=== PATIENT | female | born 1990 | race Caucasian/White ===

== ENCOUNTER 2017-06-27 18:55 | Emergency (ER) | payer OTHER ==
[~2017-06-27] VITALS: Ht 165.1 cm; Wt 81.3 kg
[2017-06-27 18:58] VITALS: TEMP 36.7; Ht 165.1 cm; Wt 81.3 kg
--- NOTE | 2017-06-27 19:21 | EMERGENCY ROOM VISIT NOTE ---
ED Visit Note First contact with patient: 19:01 CHIEF COMPLAINT: Shoulder pain HISTORY OF PRESENT ILLNESS: This 26-year-old female patient presents to the emergency department ambulatory complaining of pain in the left shoulder when she fell earlier today. The patient states that she tripped over a bar and fell forward with her hand outstretched and above her head. Her shoulder and arm were hyper extended above her head. There is marked limitation of motion of the arm because of the pain. The patient did not hear a cracking the sound at the time of the injury. There is no weakness of the arm. The pain is moderate , constant and increases with motion of the hand and arm. The patient states the pain is sharp and 5/10. The patient has taken nothing for relief of the pain. No previous significant shoulder disease or injury. No numbness or tingling. Patient denies neck or back pain. No chest pain or shortness of breath. No abdominal pain or nausea/vomiting. No cough. REVIEW OF SYSTEMS: A 6 system review of systems was performed with positives and pertinent negatives in the HPI. ALLERGIES: No known drug allergies MEDICATIONS: None PMH: None SOCIAL HISTORY: The patient lives locally with her significant other. She does not smoke. She is employed. PHYSICAL EXAM: Vital Signs: Reviewed nurse's notes, vital signs stable. GENERAL : This is a 26-year-old female, in no acute distress, but appears to be in pain , well-developed, well-nourished. MUSCULOSKELETAL: There is no deformity in the contour of the left shoulder and there are no alejandra deformities noted. There is no sulcus sign. There is tenderness over the the proximal humerus. The patient' s range of motion is markedly decreased secondary to pain. Supraspinatus strength 5/5. NEURO: The patient is alert and oriented to person, place, and time. Normal sensation to light and sharp touch. Capillary refill less than 2 seconds. Radial and brachial pulse 2+. There is no tenderness to palpation over the clavicle, elbow, forearm, wrist or hand. EMERGENCY DEPARTMENT COURSE: I examined the patient. An X-ray of the left shoulder was reviewed by myself and radiology and shows fracture to the greater tubercle of the left humerus.She decline pain medications. She was placed in a sling and swap shoulder immobilizer by the emergency department bioprocessing manufacturing technician. The position was satisfactory. She should contact orthopedics first thing Wednesday to schedule a follow- up appointment for further evaluation and management. The patient was given a note for work. She should wear the sling and swath with limited use of the arm until cleared by orthopedics. [~ rep ct add3]] LEFT SHOULDER MIN 2 VIEWS ROUTINE, LEFT HUMERUS MIN 2 VIEWS ROUTINE CLINICAL HISTORY: fall, left arm pain. Left shoulder pain. COMPARISON STUDY: None. FINDINGS: There is a nondisplaced fracture involving the greater tuberosity of the left humeral head. The fracture does not extend into the humeral neck. The mid to distal humerus and left clavicle are intact. No dislocation. IMPRESSION: Nondisplaced fracture at the greater tuberosity of the left humeral head. LEFT SHOULDER MIN 2 VIEWS ROUTINE, LEFT HUMERUS MIN 2 VIEWS ROUTINE CLINICAL HISTORY: fall, left arm pain. Left shoulder pain. COMPARISON STUDY: None. FINDINGS: There is a nondisplaced fracture involving the greater tuberosity of the left humeral head. The fracture does not extend into the humeral neck. The mid to distal humerus and left clavicle are intact. No dislocation. IMPRESSION: Nondisplaced fracture at the greater tuberosity of the left humeral head. Current/Historical Medications No Active Prescriptions or Reported Meds Allergies Coded Allergies: No Known Allergies (Unverified , 06/27/17) Vital Signs Date Time Temp Pulse Resp B/P (MAP) Pulse Ox O2 Delivery O2 Flow Rate FiO2 06/27/17 19:48 84 18 120/81 99 Room Air 06/27/17 18:58 36.7 88 16 133/86 99 Room Air Departure Information Impression Primary Impression: Proximal humerus fracture Dispostion Home / Self-Care Condition GOOD Prescriptions No Active Prescriptions or Reported Meds Referrals Robert Baptiste MD Forms HOME CARE DOCUMENTATION FORM, IMPORTANT VISIT INFORMATION, Work Instructions Additional Instructions: must wear sling and swath with limited use of the left arm until cleared by orthopedics Patient Instructions Humerus Fx, [facility] [employer] Additional Instructions Motrin 600 mg every 6-8 hours or moderate pain Wear the sling and swath until seen by orthopedics Contact orthopedics first thing Wednesday to schedule a follow-up appointment for further evaluation and management Return with any worsening pain, numbness, tingling or generalized worsening symptoms Problem Qualifiers Primary Impression: Proximal humerus fracture Encounter type: initial encounter Fracture type: closed Fracture morphology : other fracture Fracture alignment: nondisplaced Laterality: left Qualified Codes: S42.295A - Other nondisplaced fracture of upper end of left humerus, initial encounter for closed fracture
--- NOTE | 2017-06-27 19:37 | DIAGNOSTIC IMAGING REPORT ---
LEFT SHOULDER MIN 2 VIEWS ROUTINE, LEFT HUMERUS MIN 2 VIEWS ROUTINE CLINICAL HISTORY: fall, left arm pain. Left shoulder pain. COMPARISON STUDY: None. FINDINGS: There is a nondisplaced fracture involving the greater tuberosity of the left humeral head. The fracture does not extend into the humeral neck. The mid to distal humerus and left clavicle are intact. No dislocation. IMPRESSION: Nondisplaced fracture at the greater tuberosity of the left humeral head. Electronically signed by: Khadar Fitzpatrick M.D. 06/27/2017 7:35 PM Dictated Date/Time: 06/27/2017 7:33 PM
[2017-06-27 19:48] VITALS: BP 120/81; PULSE 84; O2SAT 99
== END 2017-06-27 20:00 | disposition home or self-care (01) ==
LOC: C.EDB 18:57 → C.EDD 20:00
DX: S42.295A Other nondisplaced fracture of upper end of left humerus, initial encounter for closed fracture (principal); W18.09XA Striking against other object with subsequent fall, initial encounter

== ENCOUNTER → 2017-11-10 | Outpatient (CLI) | payer OTHER | END | disposition home or self-care (01) | LOC: C.LABSPEC 11:10 | PROVIDERS: ATTEND Obstetrics & Gynecology | DX: Z34.91 Encounter for supervision of normal pregnancy, unspecified, first trimester (principal) ==

== ENCOUNTER 2017-11-21 13:07 | Emergency (ER) | payer OTHER ==
[~2017-11-21] VITALS: Ht 165.1 cm; Wt 80.5 kg
[2017-11-21 13:09] VITALS: TEMP 36.6; Ht 165.1 cm; Wt 80.5 kg
[2017-11-21] MEDS ORDERED: SODIUM CHLORIDE 0.9% 1000ML 1,000 ML IV STA ×2 (13:20→14:53)
[2017-11-21] MEDS ORDERED: ONDANSETRON INJ 2 MG/ML 2 ML VIAL IV STA (13:20)
--- NOTE | 2017-11-21 13:31 | EMERGENCY ROOM VISIT NOTE ---
History Report prepared by Mateo: Lissette Matos Under the Supervision of: Dr. Dayanara Staton M.D. First contact with patient: 13:14 Chief Complaint: DIZZY Stated Complaint: DIZZINESS,VOMITING History of Present Illness The patient is a 27 year old female who presents to the Emergency Room with complaints of sudden dizziness starting this morning. The patient states that it feels similar to vertigo thought she has never had vertigo. She states that she suddenly felt like the room was spinning, became nauseous and vomited. She reports that since then every times she changes position, she gets nauseous and vomits. She reports that she has not been able to eat or drink all day. The patient notes that she is . She states that she has been sick and dizzy with the , but not like this. She reports that this is her third . The patient denies fever, urinary symptoms, vaginal bleeding, vaginal discharge, and cramping. She denies a history of difficulty with her sugars during pregnancies. Source of History: patient Onset: this morning Position: other (global) Quality: other (the room is spinning) Timing: other (sudden) Modifying Factors (Worsening): movement Associated Symptoms: + nausea, + vomiting, No fevers, No urinary symptoms Note: The patient complains of not being able to eat or drink all day. The patient denies vaginal bleeding, vaginal discharge, and cramping. Review of Systems See HPI for pertinent positives & negatives. A total of 10 systems reviewed and were otherwise negative. Past Medical & Surgical Medical Problems: (1) No Known Active Medical Problems Family History Patient reports no known family medical history. Social History Smoking Status: Never Smoker Marital Status: Housing Status: lives with family Occupation Status: employed Current/Historical Medications Scheduled Multivit/Min/Iron/Fol Ac/Pren ( Vitamin), 1 TAB PO DAILY Ondansetron Hcl (Zofran), 4 MG PO PRN Allergies Coded Allergies: No Known Allergies (Unverified , 06/27/17) Physical Exam Vital Signs Date Time Temp Pulse Resp B/P (MAP) Pulse Ox O2 Delivery O2 Flow Rate FiO2 11/21/17 16:30 92 108/60 99 11/21/17 15:10 73 16 96/59 99 Room Air 11/21/17 13:50 76 11/21/17 13:09 36.6 92 16 125/77 99 Room Air Physical Exam Vital signs reviewed. General: Well-appearing, in no significant distress. HEENT: No scleral icterus, PERRLA, neck supple. Atraumatic. Cardiovascular: Regular rate and rhythm, no extra sounds. Pulmonary: Clear to auscultation bilaterally, normal work of breathing. Abdomen: Soft, nontender, nondistended, positive bowel sounds. Musculoskeletal: Atraumatic, no peripheral edema. Neurologic: Patient awake alert and oriented x 3, full strength in all 4 extremities. Cranial nerves 2 through 12 grossly intact. No appreciable nystagmus. Ambulates without difficulty. Skin: Warm, dry, no rash Medical Decision & Procedures Laboratory Results 11/21/17 13:30 Red Blood Count 4.41, Mean Corpuscular Volume 84.1, Mean Corpuscular Hemoglobin 30.2, Mean Corpuscular Hemoglobin Concent 35.8, Mean Platelet Volume 10.0, Neutrophils (%) (Auto) 81.6, Lymphocytes (%) (Auto) 14.3, Monocytes (%) (Auto) 3.7, Eosinophils (%) (Auto) 0.0, Basophils (%) (Auto) 0.2, Neutrophils # (Auto) 6.80, Lymphocytes # (Auto) 1.19, Monocytes # (Auto) 0.31, Eosinophils # (Auto) 0.00, Basophils # (Auto) 0.02 11/21/17 13:30 Test 11/21/17 13:30 11/21/17 15:10 White Blood Count 8.34 K/uL (4.8-10.8) Red Blood Count 4.41 M/uL (4.2-5.4) Hemoglobin 13.3 g/dL (12.0-16.0) Hematocrit 37.1 % (37-47) Mean Corpuscular Volume 84.1 fL (80-100) Mean Corpuscular Hemoglobin 30.2 pg (25-34) Mean Corpuscular Hemoglobin Concent 35.8 g/dl (32-36) Platelet Count 185 K/uL (130-400) Mean Platelet Volume 10.0 fL (7.4-10.4) Neutrophils (%) (Auto) 81.6 % Lymphocytes (%) (Auto) 14.3 % Monocytes (%) (Auto) 3.7 % Eosinophils (%) (Auto) 0.0 % Basophils (%) (Auto) 0.2 % Neutrophils # (Auto) 6.80 K/uL (1.4-6.5) Lymphocytes # (Auto) 1.19 K/uL (1.2-3.4) Monocytes # (Auto) 0.31 K/uL (0.11-0.59) Eosinophils # (Auto) 0.00 K/uL (0-0.5) Basophils # (Auto) 0.02 K/uL (0-0.2) RDW Standard Deviation 39.1 fL (36.4-46.3) RDW Coefficient of Variation 12.8 % (11.5-14.5) Immature Granulocyte % (Auto) 0.2 % Immature Granulocyte # (Auto) 0.02 K/uL (0.00-0.02) Anion Gap 12.0 mmol/L (3-11) Est Creatinine Clear Calc Drug Dose 155.4 ml/min Estimated GFR () 146.0 Estimated GFR (Non- 126.0 BUN/Creatinine Ratio 11.2 (10-20) Calcium Level 8.8 mg/dl (8.5-10.1) Magnesium Level 2.1 mg/dl (1.8-2.4) Total Bilirubin 0.4 mg/dl (0.2-1) Direct Bilirubin < 0.1 mg/dl (0-0.2) Aspartate Amino Transf (AST/SGOT) 11 U/L (15-37) Alanine Aminotransferase (ALT/SGPT) 15 U/L (12-78) Alkaline Phosphatase 50 U/L (45-117) Total Protein 7.5 gm/dl (6.4-8.2) Albumin 3.4 gm/dl (3.4-5.0) Urine Color YELLOW Urine Appearance CLEAR (CLEAR) Urine pH 6.0 (4.5-7.5) Urine Specific [place] 1.021 (1.000-1.030) Urine Protein NEG (NEG) Urine Glucose (UA) NEG (NEG) Urine Ketones 3+ (NEG) Urine Occult Blood NEG (NEG) Urine Nitrite NEG (NEG) Urine Bilirubin NEG (NEG) Urine Urobilinogen NEG (NEG) Urine Leukocyte Esterase SMALL (NEG) Urine WBC (Auto) 1-5 /hpf (0-5) Urine RBC (Auto) 0-4 /hpf (0-4) Urine Hyaline Casts (Auto) 1-5 /lpf (0-5) Urine Epithelial Cells (Auto) >30 /lpf (0-5) Urine Bacteria (Auto) 1+ (NEG) Laboratory results per my review. Medications Administered Medications (Trade) Dose Ordered Sig/Efren Route Start Time Stop Time Status Last Admin Dose Admin Sodium Chloride 1,000 ml @ 999 mls/hr Q1H1M STAT IV 11/21/17 13:20 11/21/17 14:20 DC 11/21/17 13:37 999 MLS/HR Ondansetron HCl (Zofran Inj) 4 mg NOW STAT IV 11/21/17 13:20 11/21/17 13:22 DC 11/21/17 13:37 4 MG Meclizine HCl (Antivert Tab) 25 mg NOW STAT PO 11/21/17 14:53 11/21/17 14:54 DC 11/21/17 15:04 25 MG Sodium Chloride 1,000 ml @ 200 mls/hr Q5H STAT IV 11/21/17 14:53 11/21/17 16:57 DC 11/21/17 15:07 200 MLS/HR ED Course 1317: Past medical records reviewed. The patient was evaluated in room B9. A complete history and physical examination was performed. 1320: Ordered Zofran Inj 4 mg IV, NSS 1000 ml @ 999 mls/hr IV. 1453: Ordered NSS 1000 ml @ 200 mls/hr IV, Antivert Tab 25 mg PO. 1500: I reevaluated the patient and she is still dizzy, but better than she was. 1546: Upon reevaluation, the patient appeared to have improvement of her symptoms. She is currently drinking Gatorade. I discussed findings with her. She verbalized agreement of the treatment plan. The patient was discharged home. 1615: Ordered Ondansetron HCl 1 homepack PO, Meclizine HCl 1 homepack PO. Medical Decision DDx: Etiologies such as benign positional vertigo, dehydration, hypovolemia, anemia, tumor, infection, hypoglycemia, electrolyte abnormalities, cardiac sources, intracerebral event, toxicologic, neurologic, as well as others were entertained. This pt was evaluated and appeared to be in no distress. IV access was obtained and lab work was drawn. Pt was placed on the desk monitor. Pt was hydrated with NSS and given zofran po. Lab work is unrevealing. Pt was feeling improved but continued with vertiginous sx. She was given meclizine 25 mg po and additional IVF. I do not think imaging is warranted at this time. Pt was ambulatory and no vomiting in the ED. She was d/c with po meclizine and zofran. Pt was asked to f/u with OBGYN if symptoms continue and to return to the ED for worsening of symptoms or any medical concerns. Medication Reconcilliation Current Medication List: was personally reviewed by me Blood Pressure Screening Patient's blood pressure: Normal blood pressure Blood pressure disposition: Did not require urgent referral Impression Primary Impression: Vertigo Additional Impressions: Dehydration Scribe Attestation The scribe's documentation has been prepared under my direction and personally reviewed by me in its entirety. I confirm that the note above accurately reflects all work, treatment, procedures, and medical decision making performed by me. Departure Information Dispostion Home / Self-Care Referrals No Doctor, Assigned (PCP) Forms HOME CARE DOCUMENTATION FORM, IMPORTANT VISIT INFORMATION Patient Instructions My [facility] Additional Instructions Diagnosis: , vertigo, dehydration Meclizine 25 mg every 8 hours as needed for vertigo. Zofran 4 mg ODT every 6 hours as needed for nausea. Please drink plenty of clear fluids. Follow-up with [facility] this week for reevaluation. Return to the ER for worsening of symptoms or any medical concerns. Problem Qualifiers
[2017-11-21] MEDS ORDERED: PRENTAB26 PO (13:34)
[2017-11-21] MEDS ORDERED: ONDA4TAB65 PO (13:34)
[2017-11-21 14:02] LABS: BASO % 0.2 %; BASO ABS # 0.02 K/uL (0-0.2); HEMATOCRIT 37.1 % (37-47); HEMOGLOBIN 13.3 g/dL (12.0-16.0); IG# 0.02 K/uL (0.00-0.02); LYMPH % 14.3 %; LYMPH ABS # 1.19 K/uL (1.2-3.4); MEAN CELL VOLUME 84.1 fL (80-100); MEAN CORPUSCULAR HEMOGLOBIN 30.2 pg (25-34); MEAN CORPUSCULAR HGB CONC 35.8 g/dl (32-36); MONO % 3.7 %; MONO ABS # 0.31 K/uL (0.11-0.59); NEUT % 81.6 %; PLATELET COUNT 185 K/uL (130-400); RED CELL DISTRIBUTION WIDTH CV 12.8 % (11.5-14.5); RED CELL DISTRIBUTION WIDTH SD 39.1 fL (36.4-46.3); WHITE BLOOD COUNT 8.34 K/uL (4.8-10.8)
[2017-11-21 14:15] LABS: ALBUMIN 3.4 gm/dl (3.4-5.0); ALT/SGPT 15 U/L (12-78); BLOOD UREA NITROGEN 6 mg/dl (7-18); CALCIUM 8.8 mg/dl (8.5-10.1); CARBON DIOXIDE 20 mmol/L (21-32); CREATININE 0.56 mg/dl (0.60-1.20); GLUCOSE 95 mg/dl (70-99); POTASSIUM 3.5 mmol/L (3.5-5.1); SODIUM 139 mmol/L (136-145)
[2017-11-21 14:18] LABS: ALKALINE PHOSPHATASE 50 U/L (45-117); AST/SGOT 11 U/L (15-37); TOTAL PROTEIN 7.5 gm/dl (6.4-8.2)
[2017-11-21] MEDS ORDERED: MECLIZINE HCL 25 MG TAB PO STA (14:53)
[2017-11-21] MEDS ORDERED: ONDANSETRON HOME PACK 4MG OD TAB PO ONE (16:15)
[2017-11-21] MEDS ORDERED: MECLIZINE HCL 25MG HOME PACK PO ONE (16:15)
[2017-11-21 16:30] VITALS: BP 108/60; PULSE 92; O2SAT 99
== END 2017-11-21 16:30 | disposition home or self-care (01) ==
LOC: C.EDB 13:09
DX: O99.89 Other specified diseases and conditions complicating pregnancy, childbirth and the puerperium (principal); Z3A.00 Weeks of gestation of pregnancy not specified; E86.0 Dehydration

== ENCOUNTER → 2017-11-30 | Outpatient (CLI) | payer OTHER ==
[~2017-11-30] MED LIST: ONDA4TAB65 PO; PRENTAB26 PO
[2017-11-30 15:40] LABS: BASO % 0.2 %; BASO ABS # 0.02 K/uL (0-0.2); EOS % 0.8 %; EOS ABS # 0.07 K/uL (0-0.5); HEMATOCRIT 36.9 % (37-47); HEMOGLOBIN 13.1 g/dL (12.0-16.0); IG# 0.03 K/uL (0.00-0.02); LYMPH % 21.6 %; MEAN CELL VOLUME 84.8 fL (80-100); MEAN CORPUSCULAR HEMOGLOBIN 30.1 pg (25-34); MEAN CORPUSCULAR HGB CONC 35.5 g/dl (32-36); MEAN PLATELET VOLUME 10.2 fL (7.4-10.4); MONO % 5.4 %; NEUT % 71.7 %; NEUT ABS # 6.64 K/uL (1.4-6.5); PLATELET COUNT 189 K/uL (130-400); WHITE BLOOD COUNT 9.26 K/uL (4.8-10.8)
== END | disposition home or self-care (01) ==
LOC: C.LAB 14:25
PROVIDERS: ATTEND Obstetrics & Gynecology
DX: Z34.91 Encounter for supervision of normal pregnancy, unspecified, first trimester (principal)

== ENCOUNTER → 2018-01-06 | Outpatient (CLI) | payer OTHER | END | disposition home or self-care (01) | LOC: C.LAB1850 09:12 | PROVIDERS: ATTEND Obstetrics & Gynecology | DX: Z34.82 Encounter for supervision of other normal pregnancy, second trimester (principal) ==

== ENCOUNTER → 2018-05-19 | Outpatient (CLI) | payer OTHER | END | disposition home or self-care (01) | LOC: C.LABSPEC 13:16 | PROVIDERS: ATTEND Obstetrics & Gynecology | DX: Z34.83 Encounter for supervision of other normal pregnancy, third trimester (principal) ==

== ENCOUNTER 2018-06-23 19:38 | Outpatient (CLI) | payer OTHER ==
[~2018-06-23] VITALS: Ht 165.1 cm; Wt 94.0 kg
[2018-06-23] MEDS ORDERED: FAMO20TA9 PO (20:31)
[2018-06-23 20:32] VITALS: Ht 165.1 cm; Wt 94.0 kg
== END 2018-06-23 21:25 | disposition home or self-care (01) ==
LOC: C.LD 19:38 → C.OPB 19:38
PROVIDERS: ATTEND Obstetrics & Gynecology
DX: O48.0 Post-term pregnancy (principal); Z3A.41 41 weeks gestation of pregnancy